=== PATIENT | male | born 1945 | race Caucasian/White ===

== ENCOUNTER 2019-11-17 11:48 | Inpatient (IN) ==
[2019-11-17] MEDS ORDERED: 0.9 % Sodium Chloride 1,000 ML IV ONE (12:54)
[2019-11-17 13:13] LABS: Bilirubin,Urine Negative (Negative); Blood,Urine Trace-intact (Negative); Clarity,Urine Clear (Clear); Color,Urine Yellow (Yellow); Glucose,Urine (UA) 100 mg/dL (Normal); Ketones,Urine 15 mg/dL (Negative); Leukocyte Esterase,Urine Trace (Negative); Nitrite,Urine Negative (Negative); PH,Urine 6.5 pH Units (5.0-8.0); Protein,Urine 100 mg/dL (Neg-Trace); Urobilinogen,Urine Normal (Normal)
[2019-11-17 13:20] LABS: Hyaline Casts,Urine Few per lpf (None-Few); Squamous Epithelial Cell,Urine Many per lpf (None-Few)
[2019-11-17 13:21] LABS: Bacteria,Urine Few per hpf (None-Few); RBC,Urine 0-3 per hpf (0-3); Transitional Epi Cells,Urine Few per hpf (None-Few)
[2019-11-17 13:45] LABS: Basophils % 0.6 %; Eosinophils % 0.3 %; Hematocrit 39.4 % (37.5-50.1); Immature Granulocytes % 0.3 % (0-4); Lymphocytes # 0.6 K/mcL (0.6-4.6); Mean Corpuscular HGB Conc 35.5 g/dL (31.6-35.5); Mean Platelet Volume 11.9 fL (9.4-12.4); Monocytes # 0.3 K/mcL (0.0-1.3); Neutrophils # 2.4 K/mcL (1.6-8.9); Platelet Count 108 K/mcL (140-400); Red Blood Count 4.38 M/mcL (4.19-5.50); Red Cell Distribution Width 12.3 % (11.5-14.5); Segmented Neutrophils % 71.8 %; White Blood Count 3.3 K/mcL (4.3-11.1)
[2019-11-17 13:51] LABS: Prothrombin Time 11.9 Seconds (9.4-12.1)
[2019-11-17 13:54] LABS: Macrocytosis Present (Not Present); Platelet Estimate Decreased (Normal); Reactive Lymphocytes Present (Not Present)
[2019-11-17 13:58] LABS: Albumin 4.3 g/dL (3.5-5.7); Albumin/Globulin Ratio 1.2 (1.1-2.2); Bilirubin,Total 0.7 mg/dL (0.3-1.0); Calcium 10.1 mg/dL (8.6-10.3); Globulin 3.7 g/dL (2.4-3.5); Magnesium 2.3 mg/dL (1.6-2.6); Potassium 2.9 mEq/L (3.5-5.1)
[2019-11-17 14:27] LABS: Troponin I 0.04 ng/mL (< 0.04)
[2019-11-17] MEDS ORDERED: Isovue-370 500 ML BOTTLE IVP ONE (15:21)
[2019-11-17] MEDS ORDERED: Insulin LISPRO 300 UNITS/3 ML VIAL SQ STA (16:46)
[2019-11-17] MEDS ORDERED: Ondansetron 4 MG/2 ML VIAL IVP PRN (18:28)
[2019-11-17] MEDS ORDERED: Naloxone 0.4 MG/ML INJ IVP PRN (18:28)
[2019-11-17] MEDS ORDERED: Ondansetron ODT 4 MG TAB.RAPDIS SL PRN (18:28)
[2019-11-17] MEDS ORDERED: Mag Hydrox/Al Hydrox/Simeth 30 ML UDC PO PRN (18:28)
[2019-11-17] MEDS ORDERED: Dextrose Gel 15 GM/37.5 ML TUBE PO PRN ×2 (18:35)
[2019-11-17] MEDS ORDERED: *HR* Dextrose 50 % in Water (Syg) 50 ML SYRINGE IVP PRN (18:35)
[2019-11-17] MEDS ORDERED: D5% in Water 1,000 ML IVC PRN (18:35)
[2019-11-17] MEDS ORDERED: Insulin DETEMIR 100 UNIT/ML X5UNITS SQ SCH (21:00)
[2019-11-17] MEDS: Insulin LISPRO 300 UNITS/3 ML VIAL SQ SCH (21:43)
[2019-11-17] MEDS: Clotrimazole/Betameth Dip CRM 45 APPL/45 GM TUBE TP SCH (21:43)
[2019-11-17] MEDS ORDERED: Insulin DETEMIR 100 UNIT/ML per UNIT SQ ONE (21:45)
[2019-11-17] MEDS: Acetaminophen 325 MG TABLET PO SCH ×2 (21:49→23:49)
[2019-11-17] MEDS: Diphenoxylate/Atropine 1 TAB TABLET PO SCH (21:52)
[2019-11-17] MEDS: 0.9 % Sodium Chloride w KCl 20 MEQ/1,000 ML MLS IVC SCH (21:56)
[2019-11-18] MEDS: Acetaminophen 325 MG TABLET PO SCH ×3 (03:48→13:36)
[2019-11-18] MEDS: 0.9 % Sodium Chloride w KCl 20 MEQ/1,000 ML MLS IVC SCH ×3 (05:16→22:22)
[2019-11-18] MEDS: *HR* Enoxaparin 40 MG/0.4 ML SYRINGE SQ SCH (05:18)
[2019-11-18 05:37] LABS: Basophils % 1.2 %; Hematocrit 36.9 % (37.5-50.1); Hemoglobin 13.3 g/dL (12.9-16.9); Immature Granulocytes % 0.3 % (0-4); Lymphocytes # 0.8 K/mcL (0.6-4.6); Lymphocytes % 24.1 %; Mean Corpuscular Hemoglobin 32.3 pg (28.0-33.3); Mean Corpuscular Volume 89.6 fL (83.0-100.0); Monocytes # 0.4 K/mcL (0.0-1.3); Monocytes % 11.5 %; Red Blood Count 4.12 M/mcL (4.19-5.50); Red Cell Distribution Width 12.2 % (11.5-14.5); Segmented Neutrophils % 62.9 %; White Blood Count 3.2 K/mcL (4.3-11.1)
[2019-11-18 05:54] LABS: Alanine Aminotransferase 16 Units/L (7-52); Albumin 3.8 g/dL (3.5-5.7); Albumin/Globulin Ratio 1.2 (1.1-2.2); Alkaline Phosphatase 68 Units/L (34-104); Aspartate Amino Transferase 25 Units/L (13-39); BUN/Creatinine Ratio 20 (6-26); Bilirubin,Total 0.6 mg/dL (0.3-1.0); Blood Urea Nitrogen 26 mg/dL (8-23); Calcium 9.2 mg/dL (8.6-10.3); Carbon Dioxide 28 mEq/L (23-29); Chloride 99 mEq/L (98-107); Globulin 3.2 g/dL (2.4-3.5); Glucose 162 mg/dL (70-105); Magnesium 2.3 mg/dL (1.6-2.6); Osmolality,Calculated 286 (280-300); Phosphorous 2.6 mg/dL (2.7-4.5); Potassium 2.7 mEq/L (3.5-5.1); Sodium 134 mEq/L (136-145); eGFR For African Americans > 60 (> 60); eGFR For Non-African Americans 53 (> 60)
[2019-11-18] MEDS ORDERED: Acetaminophen IV 1,000 MG/100 ML INFUS..BTL IVPB SCH (06:00)
[2019-11-18 06:02] LABS: Platelet Count 98 K/mcL (140-400)
[2019-11-18 06:07] LABS: Platelet Estimate Marked Decrease (Normal); Reactive Lymphocytes Present (Not Present)
[2019-11-18] MEDS: Diphenoxylate/Atropine 1 TAB TABLET PO SCH ×4 (08:05→20:36)
[2019-11-18] MEDS: Aspirin Enteric Coated 81 MG Tablet PO SCH (08:05)
[2019-11-18] MEDS: cefTRIAXone 1,000 MG in 0.9 % Sodium Chloride Mini Bag 100 ML IVPB SCH (08:06)
[2019-11-18] MEDS: Insulin LISPRO 300 UNITS/3 ML VIAL SQ SCH ×7 (08:06→20:37)
[2019-11-18] MEDS: Clotrimazole/Betameth Dip CRM 45 APPL/45 GM TUBE TP SCH ×2 (08:11→22:20)
[2019-11-18] MEDS: Lactobacillus 1 EACH CAP.SPRINK PO SCH ×4 (08:12→11:06)
[2019-11-18] MEDS ORDERED: [UNRECOGNIZED DRUG - OTHER] PO SCH (09:00)
[2019-11-18 10:22] LABS: Adenovirus Not Detected (Not Detect); Bordetella Pertussis Not Detected (Not Detect); Chlamydophila pneumoniae Not Detected (Not Detect); Coronavirus 229E Not Detected (Not Detect); Coronavirus HKU1 Not Detected (Not Detect); Coronavirus NL63 Not Detected (Not Detect); Coronavirus OC43 Not Detected (Not Detect); Human Metapneumovirus Not Detected (Not Detect); Human Rhinovirus/Enterovirus Not Detected (Not Detect); Influenza A Subtype 2009 H1 Not Detected (Not Detect); Influenza B Not Detected (Not Detect); Mycoplasma pneumoniae Not Detected (Not Detect); Parainfluenza Virus 1 Not Detected (Not Detect); Parainfluenza Virus 2 Not Detected (Not Detect); Parainfluenza Virus 3 Not Detected (Not Detect); Parainfluenza Virus 4 Not Detected (Not Detect); Respiratory Syncytial Virus Not Detected (Not Detect)
[2019-11-18] MEDS ORDERED: Acetaminophen 325 MG TABLET PO PRN (13:44)
[2019-11-18 18:26] LABS: BUN/Creatinine Ratio 20 (6-26); Blood Urea Nitrogen 26 mg/dL (8-23); Calcium 8.7 mg/dL (8.6-10.3); Carbon Dioxide 27 mEq/L (23-29); Chloride 102 mEq/L (98-107); Glucose 165 mg/dL (70-105); Osmolality,Calculated 284 (280-300); Potassium 3.5 mEq/L (3.5-5.1); Sodium 133 mEq/L (136-145); eGFR For African Americans > 60 (> 60); eGFR For Non-African Americans 55 (> 60)
[2019-11-18] MEDS: Insulin DETEMIR 100 UNIT/ML X5UNITS SQ SCH (20:36)
[2019-11-19] MEDS: *HR* Enoxaparin 40 MG/0.4 ML SYRINGE SQ SCH (02:11)
[2019-11-19] MEDS: 0.9 % Sodium Chloride w KCl 20 MEQ/1,000 ML MLS IVC SCH ×2 (06:33→09:09)
[2019-11-19] MEDS: Clotrimazole/Betameth Dip CRM 45 APPL/45 GM TUBE TP SCH ×2 (08:05→19:53)
[2019-11-19] MEDS: Diphenoxylate/Atropine 1 TAB TABLET PO SCH ×4 (08:06→19:51)
[2019-11-19] MEDS: Aspirin Enteric Coated 81 MG Tablet PO SCH (08:06)
[2019-11-19] MEDS: Insulin LISPRO 300 UNITS/3 ML VIAL SQ SCH ×7 (08:07→19:52)
[2019-11-19] MEDS: cefTRIAXone 1,000 MG in 0.9 % Sodium Chloride Mini Bag 100 ML IVPB SCH (08:08)
[2019-11-19] MEDS: Lactobacillus 1 EACH CAP.SPRINK PO SCH (08:16)
[2019-11-19 10:56] LABS: BUN/Creatinine Ratio 19 (6-26); Blood Urea Nitrogen 20 mg/dL (8-23); Calcium 8.5 mg/dL (8.6-10.3); Carbon Dioxide 26 mEq/L (23-29); Chloride 104 mEq/L (98-107); Glucose 193 mg/dL (70-105); Osmolality,Calculated 288 (280-300); Potassium 3.5 mEq/L (3.5-5.1); Sodium 135 mEq/L (136-145); eGFR For African Americans > 60 (> 60); eGFR For Non-African Americans > 60 (> 60)
[2019-11-19] MEDS: Cholestyramine 4 GM POWD.PACK PO SCH ×2 (13:22→16:56)
[2019-11-19] MEDS: Insulin DETEMIR 100 UNIT/ML X5UNITS SQ SCH (19:52)
[2019-11-20] MEDS: *HR* Enoxaparin 40 MG/0.4 ML SYRINGE SQ SCH (04:25)
[2019-11-20] MEDS: Clotrimazole/Betameth Dip CRM 45 APPL/45 GM TUBE TP SCH ×2 (07:44→20:21)
[2019-11-20] MEDS: Cholestyramine 4 GM POWD.PACK PO SCH ×3 (07:44→16:51)
[2019-11-20] MEDS: Diphenoxylate/Atropine 1 TAB TABLET PO SCH ×4 (07:45→20:29)
[2019-11-20] MEDS: Aspirin Enteric Coated 81 MG Tablet PO SCH (07:46)
[2019-11-20] MEDS: Insulin LISPRO 300 UNITS/3 ML VIAL SQ SCH ×7 (07:46→20:30)
[2019-11-20] MEDS: Lactobacillus 1 EACH CAP.SPRINK PO SCH (07:46)
[2019-11-20] MEDS: cefTRIAXone 1,000 MG in 0.9 % Sodium Chloride Mini Bag 100 ML IVPB SCH (07:53)
[2019-11-20 10:51] LABS: Basophils % 0.6 %; Eosinophils # 0.1 K/mcL (0.0-0.6); Eosinophils % 2.7 %; Hematocrit 36.2 % (37.5-50.1); Hemoglobin 12.5 g/dL (12.9-16.9); Immature Granulocytes % 0.2 % (0-4); Lymphocytes # 1.7 K/mcL (0.6-4.6); Lymphocytes % 35.9 %; Mean Corpuscular HGB Conc 34.5 g/dL (31.6-35.5); Mean Corpuscular Hemoglobin 32.1 pg (28.0-33.3); Mean Corpuscular Volume 93.1 fL (83.0-100.0); Mean Platelet Volume 12.1 fL (9.4-12.4); Monocytes # 0.5 K/mcL (0.0-1.3); Monocytes % 10.2 %; Neutrophils # 2.4 K/mcL (1.6-8.9); Platelet Count 129 K/mcL (140-400); Red Blood Count 3.89 M/mcL (4.19-5.50); Red Cell Distribution Width 12.6 % (11.5-14.5); Segmented Neutrophils % 50.4 %; White Blood Count 4.8 K/mcL (4.3-11.1)
[2019-11-20 11:03] LABS: BUN/Creatinine Ratio 21 (6-26); Blood Urea Nitrogen 21 mg/dL (8-23); Carbon Dioxide 27 mEq/L (23-29); Chloride 106 mEq/L (98-107); Glucose 113 mg/dL (70-105); Osmolality,Calculated 288 (280-300); Potassium 4.2 mEq/L (3.5-5.1); Sodium 137 mEq/L (136-145); eGFR For African Americans > 60 (> 60); eGFR For Non-African Americans > 60 (> 60)
[2019-11-20] MEDS: Insulin DETEMIR 100 UNIT/ML X5UNITS SQ SCH (20:29)
[2019-11-21] MEDS: *HR* Enoxaparin 40 MG/0.4 ML SYRINGE SQ SCH (06:09)
[2019-11-21] MEDS: Cholestyramine 4 GM POWD.PACK PO SCH ×3 (06:11→17:19)
[2019-11-21] MEDS: Lactobacillus 1 EACH CAP.SPRINK PO SCH (08:16)
[2019-11-21] MEDS: Diphenoxylate/Atropine 1 TAB TABLET PO SCH ×4 (08:16→20:37)
[2019-11-21] MEDS: Aspirin Enteric Coated 81 MG Tablet PO SCH (08:16)
[2019-11-21] MEDS: Clotrimazole/Betameth Dip CRM 45 APPL/45 GM TUBE TP SCH ×2 (08:17→20:35)
[2019-11-21] MEDS: Insulin LISPRO 300 UNITS/3 ML VIAL SQ SCH ×7 (08:17→20:27)
[2019-11-21] MEDS: Insulin DETEMIR 100 UNIT/ML X5UNITS SQ SCH (20:38)
[2019-11-22 05:58] LABS: BUN/Creatinine Ratio 19 (6-26); Blood Urea Nitrogen 18 mg/dL (8-23); Calcium 8.8 mg/dL (8.6-10.3); Carbon Dioxide 26 mEq/L (23-29); Chloride 106 mEq/L (98-107); Glucose 234 mg/dL (70-105); Osmolality,Calculated 291 (280-300); Potassium 4.2 mEq/L (3.5-5.1); Sodium 136 mEq/L (136-145); eGFR For African Americans > 60 (> 60); eGFR For Non-African Americans > 60 (> 60)
[2019-11-22] MEDS: Clotrimazole/Betameth Dip CRM 45 APPL/45 GM TUBE TP SCH (07:58)
[2019-11-22] MEDS: Lactobacillus 1 EACH CAP.SPRINK PO SCH (07:59)
[2019-11-22] MEDS: Aspirin Enteric Coated 81 MG Tablet PO SCH (07:59)
[2019-11-22] MEDS: Cholestyramine 4 GM POWD.PACK PO SCH ×2 (07:59→13:04)
[2019-11-22] MEDS: Diphenoxylate/Atropine 1 TAB TABLET PO SCH ×2 (07:59→13:04)
[2019-11-22] MEDS: *HR* Enoxaparin 40 MG/0.4 ML SYRINGE SQ SCH (08:00)
[2019-11-22] MEDS: Insulin LISPRO 300 UNITS/3 ML VIAL SQ SCH ×4 (08:06→11:50)
[2019-11-22 09:29] LABS: Basophils % 0.7 %; Eosinophils # 0.3 K/mcL (0.0-0.6); Eosinophils % 4.4 %; Hemoglobin 12.5 g/dL (12.9-16.9); Immature Granulocytes % 0.3 % (0-4); Lymphocytes # 1.8 K/mcL (0.6-4.6); Lymphocytes % 28.7 %; Mean Corpuscular HGB Conc 34.7 g/dL (31.6-35.5); Mean Corpuscular Hemoglobin 32.6 pg (28.0-33.3); Mean Platelet Volume 11.9 fL (9.4-12.4); Monocytes # 0.6 K/mcL (0.0-1.3); Monocytes % 9.7 %; Neutrophils # 3.4 K/mcL (1.6-8.9); Platelet Count 165 K/mcL (140-400); Red Blood Count 3.83 M/mcL (4.19-5.50); Red Cell Distribution Width 12.6 % (11.5-14.5); Segmented Neutrophils % 56.2 %; White Blood Count 6.1 K/mcL (4.3-11.1)
[2019-11-22 11:37] VITALS: BP 115/59
== END 2019-11-22 14:38 | disposition other institution (70) | DRG 312 ==
LOC: INPGRE 11:48 → EMEROOGRE 11:48 → INPGRE 17:45
PROVIDERS: ADMIT Family Medicine; ATTEND Family Medicine

== ENCOUNTER 2019-11-21 15:48 | Inpatient (IN) ==
[2019-11-22] MEDS ORDERED: Acetaminophen 325 MG TABLET PO PRN (14:54)
[2019-11-22] MEDS ORDERED: *HR* Dextrose 50 % in Water (Syg) 50 ML SYRINGE IVP PRN (15:03)
[2019-11-22] MEDS ORDERED: Dextrose Gel 15 GM/37.5 ML TUBE PO PRN ×2 (15:03)
[2019-11-22] MEDS ORDERED: D5% in Water 1,000 ML IVC PRN (15:03)
[2019-11-22] MEDS ORDERED: Mag Hydrox/Al Hydrox/Simeth 30 ML UDC PO PRN (15:05)
[2019-11-22] MEDS ORDERED: Naloxone 0.4 MG/ML INJ IVP PRN (15:06)
[2019-11-22] MEDS ORDERED: Ondansetron 4 MG/2 ML VIAL IVP PRN (15:06)
[2019-11-22] MEDS ORDERED: Ondansetron ODT 4 MG TAB.RAPDIS SL PRN (15:07)
[2019-11-22] MEDS: Diphenoxylate/Atropine 1 TAB TABLET PO SCH ×2 (17:54→21:50)
[2019-11-22] MEDS: Insulin LISPRO 300 UNITS/3 ML VIAL SQ SCH ×3 (17:54→21:51)
[2019-11-22] MEDS: Cholestyramine 4 GM POWD.PACK PO SCH (17:54)
[2019-11-22] MEDS: Insulin DETEMIR 100 UNIT/ML X5UNITS SQ SCH (21:51)
[2019-11-22] MEDS: Clotrimazole/Betameth Dip CRM 45 APPL/45 GM TUBE TP SCH (21:51)
[2019-11-23] MEDS: Cholestyramine 4 GM POWD.PACK PO SCH ×3 (06:31→16:57)
[2019-11-23] MEDS: *HR* Enoxaparin 40 MG/0.4 ML SYRINGE SQ SCH (06:31)
[2019-11-23] MEDS: Insulin LISPRO 300 UNITS/3 ML VIAL SQ SCH ×7 (08:13→22:35)
[2019-11-23] MEDS: Aspirin Enteric Coated 81 MG Tablet PO SCH (08:17)
[2019-11-23] MEDS: Lactobacillus 1 EACH CAP.SPRINK PO SCH (08:18)
[2019-11-23] MEDS: Diphenoxylate/Atropine 1 TAB TABLET PO SCH ×4 (08:18→22:34)
[2019-11-23] MEDS: Clotrimazole/Betameth Dip CRM 45 APPL/45 GM TUBE TP SCH ×2 (08:19→22:35)
[2019-11-23] MEDS: Insulin DETEMIR 100 UNIT/ML X5UNITS SQ SCH (22:34)
[2019-11-24] MEDS: Cholestyramine 4 GM POWD.PACK PO SCH ×3 (05:11→16:31)
[2019-11-24] MEDS: *HR* Enoxaparin 40 MG/0.4 ML SYRINGE SQ SCH (05:11)
[2019-11-24 06:07] LABS: Basophils % 0.6 %; Eosinophils # 0.2 K/mcL (0.0-0.6); Eosinophils % 2.7 %; Hematocrit 34.7 % (37.5-50.1); Hemoglobin 11.8 g/dL (12.9-16.9); Immature Granulocytes % 0.5 % (0-4); Lymphocytes # 1.3 K/mcL (0.6-4.6); Lymphocytes % 20.2 %; Mean Corpuscular Hemoglobin 32.2 pg (28.0-33.3); Mean Corpuscular Volume 94.8 fL (83.0-100.0); Mean Platelet Volume 11.7 fL (9.4-12.4); Monocytes # 0.9 K/mcL (0.0-1.3); Monocytes % 13.7 %; Platelet Count 180 K/mcL (140-400); Red Blood Count 3.66 M/mcL (4.19-5.50); Red Cell Distribution Width 12.5 % (11.5-14.5); Segmented Neutrophils % 62.3 %; White Blood Count 6.4 K/mcL (4.3-11.1)
[2019-11-24 06:20] LABS: BUN/Creatinine Ratio 21 (6-26); Blood Urea Nitrogen 21 mg/dL (8-23); Calcium 9.6 mg/dL (8.6-10.3); Carbon Dioxide 23 mEq/L (23-29); Chloride 106 mEq/L (98-107); Glucose 227 mg/dL (70-105); Osmolality,Calculated 288 (280-300); Potassium 4.7 mEq/L (3.5-5.1); Sodium 134 mEq/L (136-145); eGFR For African Americans > 60 (> 60); eGFR For Non-African Americans > 60 (> 60)
[2019-11-24] MEDS: Lactobacillus 1 EACH CAP.SPRINK PO SCH (08:06)
[2019-11-24] MEDS: Aspirin Enteric Coated 81 MG Tablet PO SCH (08:06)
[2019-11-24] MEDS: Diphenoxylate/Atropine 1 TAB TABLET PO SCH ×4 (08:06→22:14)
[2019-11-24] MEDS: Insulin LISPRO 300 UNITS/3 ML VIAL SQ SCH ×7 (08:07→22:15)
[2019-11-24] MEDS: Clotrimazole/Betameth Dip CRM 45 APPL/45 GM TUBE TP SCH ×2 (08:07→22:16)
[2019-11-24] MEDS: Insulin DETEMIR 100 UNIT/ML X5UNITS SQ SCH (22:13)
[2019-11-25] MEDS: *HR* Enoxaparin 40 MG/0.4 ML SYRINGE SQ SCH (05:39)
[2019-11-25] MEDS: Insulin LISPRO 300 UNITS/3 ML VIAL SQ SCH ×7 (08:15→20:42)
[2019-11-25] MEDS: Cholestyramine 4 GM POWD.PACK PO SCH ×3 (08:16→17:19)
[2019-11-25] MEDS: Aspirin Enteric Coated 81 MG Tablet PO SCH (08:18)
[2019-11-25] MEDS: Lactobacillus 1 EACH CAP.SPRINK PO SCH (08:19)
[2019-11-25] MEDS: Diphenoxylate/Atropine 1 TAB TABLET PO SCH ×4 (08:19→20:51)
[2019-11-25] MEDS: Clotrimazole/Betameth Dip CRM 45 APPL/45 GM TUBE TP SCH ×2 (08:21→20:51)
[2019-11-25] MEDS: Insulin DETEMIR 100 UNIT/ML X5UNITS SQ SCH (20:52)
[2019-11-26] MEDS: *HR* Enoxaparin 40 MG/0.4 ML SYRINGE SQ SCH (05:03)
[2019-11-26 05:47] LABS: BUN/Creatinine Ratio 26 (6-26); Blood Urea Nitrogen 25 mg/dL (8-23); Calcium 9.7 mg/dL (8.6-10.3); Carbon Dioxide 23 mEq/L (23-29); Chloride 108 mEq/L (98-107); Glucose 145 mg/dL (70-105); Osmolality,Calculated 293 (280-300); Sodium 138 mEq/L (136-145); eGFR For African Americans > 60 (> 60); eGFR For Non-African Americans > 60 (> 60)
[2019-11-26] MEDS: Insulin LISPRO 300 UNITS/3 ML VIAL SQ SCH ×7 (08:03→23:32)
[2019-11-26] MEDS: Cholestyramine 4 GM POWD.PACK PO SCH ×3 (08:11→16:26)
[2019-11-26 09:57] LABS: Estimated Average Glucose 243 mg/dl
[2019-11-26] MEDS: Diphenoxylate/Atropine 1 TAB TABLET PO SCH ×4 (10:05→23:31)
[2019-11-26] MEDS: Aspirin Enteric Coated 81 MG Tablet PO SCH (10:05)
[2019-11-26] MEDS: Clotrimazole/Betameth Dip CRM 45 APPL/45 GM TUBE TP SCH ×2 (10:10→23:32)
[2019-11-26] MEDS: Insulin DETEMIR 100 UNIT/ML X5UNITS SQ SCH (23:31)
[2019-11-27] MEDS: *HR* Enoxaparin 40 MG/0.4 ML SYRINGE SQ SCH (06:19)
[2019-11-27] MEDS: Cholestyramine 4 GM POWD.PACK PO SCH ×3 (06:20→17:52)
[2019-11-27] MEDS: Diphenoxylate/Atropine 1 TAB TABLET PO SCH ×4 (08:02→20:19)
[2019-11-27] MEDS: Clotrimazole/Betameth Dip CRM 45 APPL/45 GM TUBE TP SCH (08:03)
[2019-11-27] MEDS: Aspirin Enteric Coated 81 MG Tablet PO SCH (08:03)
[2019-11-27] MEDS: Insulin LISPRO 300 UNITS/3 ML VIAL SQ SCH ×7 (08:10→20:29)
[2019-11-27] MEDS: Insulin DETEMIR 100 UNIT/ML X5UNITS SQ SCH (20:19)
[2019-11-28] MEDS: Clotrimazole/Betameth Dip CRM 45 APPL/45 GM TUBE TP SCH ×3 (02:59→20:51)
[2019-11-28] MEDS: *HR* Enoxaparin 40 MG/0.4 ML SYRINGE SQ SCH (05:52)
[2019-11-28] MEDS: Cholestyramine 4 GM POWD.PACK PO SCH ×3 (06:00→17:04)
[2019-11-28] MEDS: Insulin LISPRO 300 UNITS/3 ML VIAL SQ SCH ×7 (08:02→20:52)
[2019-11-28] MEDS: Aspirin Enteric Coated 81 MG Tablet PO SCH (08:02)
[2019-11-28] MEDS: Diphenoxylate/Atropine 1 TAB TABLET PO SCH ×4 (08:02→20:35)
[2019-11-28] MEDS: Insulin DETEMIR 100 UNIT/ML X5UNITS SQ SCH (20:35)
[2019-11-29] MEDS: Cholestyramine 4 GM POWD.PACK PO SCH (05:42)
[2019-11-29] MEDS: *HR* Enoxaparin 40 MG/0.4 ML SYRINGE SQ SCH (05:45)
[2019-11-29 07:21] VITALS: BP 121/57
[2019-11-29] MEDS ORDERED: Diphenoxylate/Atropine 1 TAB TABLET PO ONE (09:24)
[2019-11-29] MEDS ORDERED: Aspirin Enteric Coated 81 MG Tablet PO ONE (09:24)
== END 2019-11-29 11:30 | disposition home or self-care (01) | DRG 945 ==
LOC: INPGRE 11-22 14:28
PROVIDERS: ADMIT Family Medicine; ATTEND Family Medicine